=== PATIENT | female | born 1985 | race Caucasian/White ===

== ENCOUNTER 2019-07-31 20:09 | Emergency (ER) | payer OTHER, MEDICAID ==
[~2019-07-31] VITALS: Ht 152.4 cm; Wt 50.5 kg
--- NOTE | 2019-07-31 20:23 | NUR ---
dr garland notified of trauma status.
[2019-07-31 20:42] VITALS: BP 127/87
--- NOTE | 2019-07-31 20:52 | NUR ---
PT REPORTS 5/10 ON LEFT LEG. REPORTS A HEADACHE. 6/10 THROUGHOUT. PT AOX3. DENIES DIZZINESS. PUPILS REACTIVE. PT TALKING TO SIGNIFICANT OTHER AT BEDSIDE. BP 127/87.
[2019-07-31] MEDS ORDERED: acetaminophen 325mg tablet PO ONE (20:55)
[2019-07-31] MEDS ORDERED: ibuprofen tablet 400 MG TABLET PO ONE (20:55)
[2019-07-31] MEDS ORDERED: TETanus/Pertussis (Acell)/Diphther VAC/PF (Tdap-Adult) 0.5ml syringe IMVAC ONE (20:55)
== END 2019-07-31 21:16 | disposition home or self-care (01) ==
LOC: ER 20:09
DX: S86.912A Strain of unspecified muscle(s) and tendon(s) at lower leg level, left leg, initial encounter (principal); S80.12XA Contusion of left lower leg, initial encounter; V49.88XA Car occupant (driver) (passenger) injured in other specified transport accidents, initial encounter; Y93.89 Activity, other specified; Y92.413 State road as the place of occurrence of the external cause; Y99.9 Unspecified external cause status
CPT/HCPCS: 73590; 90471; 90715; 99283